=== PATIENT | female | born 1975 | race Caucasian/White ===

== ENCOUNTER → 2022-04-03 | Outpatient (CLI) | payer MEDICAID, SELFPAY ==
--- NOTE | 2022-04-03 | BRBX_PTH ---
PATIENT: MATEO PETERSON LOC: [facility] U#:[id number] AGE/SX: 46/F ROOM: RE04/03/[address]: Dr. Gibson Jameson MD : 1975 BED: DIS: 04/03/2022 SPEC #: [id number] RECD: 04/03/22 12:37 STATUS: KENNY USHA #: [id number] JANKI: 04/03/22 00:[address]: Gibson Jameson DEPT: SURGICAL PATHOLOGY RECD BY: Krunal Roman ENTERED: 04/03/22 12:37 SP TYPE: BREAST BX OTHR DR: Dr. Quinten De La Rosa MD Tissues: Right breast, NOS Procedures: Surgery Specimen Level IV HEADER OPERATION: Right breast stereotactic biopsy PRE-OP DIAGNOSIS: Multiple clustered coarse heterogeneous calcifications in the right breast, lower outer aspect, middle depth TISSUE SUBMITTED: Right breast core tissue ISCHEMIC TIME: 1 minute FIXATION TIME: 56 hours MICROSCOPIC DIAGNOSIS Right breast, stereotactic core biopsy: Focal intraductal hyperplasia without atypia. Banal clustered microcalcifications. Changes suggestive of intraductal papilloma. No evidence of malignancy. AM:loly 04/06/2022 MICROSCOPIC DESCRIPTION Slides are reviewed. GROSS DESCRIPTION Received in fixative is one container labeled with the patient's name and designated right breast. The specimen consists of multiple elongated fragments of montero-yellow fibroadipose tissue that in aggregate measure 5 x 3 x 0.6 cm. The entire specimen is submitted in four cassettes. / SJ:loly 04/03/2022 TC:5 CPT: 16551
--- NOTE | 2022-04-03 12:05 | PCM.HP.BLA ---
History and Physical Date of Admission: 04/03/22 HISTORY AND PHYSICAL - BREAST COMPLAINT ? Marisol Jackson 1975 ? ? REFERRING PHYSICIAN: Quinten De La Rosa MD ? CHIEF COMPLAINT: Mammographic microcalcification found on diagnostic imaging of breast (primary encounter diagnosis) ? HPI: The patient is a 46 year old female with a complaint of an abnormal mammogram. The patient had a mammogram with ultrasound on March 10, 2022 which demonstrated : IMPRESSION: SUSPICIOUS FINDING - BIOPSY SHOULD BE CONSIDERED The multiple clustered coarse heterogeneous calcifications in the right breast lower outer aspect middle depth are suspicious of malignancy. ?A stereotactic biopsy is recommended. The 0.6 cm oval focal asymmetry in the right breast central to the nipple middle depth is suspicious of malignancy. ?A stereotactic biopsy is recommended - no defintive sonographic correlate noted on same day ultrasound. ? ? The patient denies a history of breast masses. She does perform a self breast exam routinely. She notes no skin changes. She denies nipple discharge. She notes no axillary masses. She notes no family history of breast problems. She notes no significant breast trauma or breast difficulties in the past. ? ? The patient is being seen by me today at the request of Dr. Quinten De La Rosa MD for my opinion and advice regarding Mammographic microcalcification found on diagnostic imaging of breast (primary encounter diagnosis). ? PAST MEDICAL HISTORY PAST MEDICAL HISTORY Diagnosis Date ? Abnormal Pap smear of cervix 2006 ? colp 2007 negative ? Anxiety ? ? Depression 06/04/2017 ? H/O cold sores ? ? Hypothyroidism ? ? Migraines ? ? with visual aura ? ? PAST SURGICAL HISTORY PAST SURGICAL HISTORY Procedure Laterality Date ? COLONOSCOPY SCREENING ? 2020 ? 5 yr follow-up suboptimal bowel prep ? PAST SURGICAL HISTORY OF ? 2010 ? shoulder surgery on left ? PAST SURGICAL HISTORY OF ? 1993 ? lap and d and c;endometriosis ? SHOULDER ARTHROSCOPY/SURGERY ? ? ? Right shoulder ? TONSILLECTOMY HX ? ? ? VAG HYST 250 GM/< W/RMVL TUBE&/OVARY ? 06/10/2017 ? ovaries remain ? VAGINAL HYSTERECTOMY ? CURRENT MEDICATIONS Current Outpatient Medications Medication Sig Dispense Refill ? fexofenadine (KYLE) 180 mg tablet Take 180 mg by mouth once daily. ? ? ? fluticasone (FLONASE) 50 mcg/actuation nasal spray Use 2 Sprays in each nostril once daily. Rinse mouth after use. 16 g 1 ? escitalopram oxalate (LEXAPRO) 20 mg tablet Take 1 tablet by mouth once daily. 90 tablet 3 ? levothyroxine (SYNTHROID) 137 mcg tablet Take 1 tablet by mouth once daily. 90 tablet 1 ? valACYclovir (VALTREX) 500 mg tablet Take 1 tablet by mouth once daily. 90 tablet 0 ? OTC PRODUCT [employer] ? ? ? rOPINIRole (REQUIP) 0.25 mg tablet Take 1 tablet by mouth once daily. 90 tablet 2 ? buPROPion XL (WELLBUTRIN XL) 300 mg 24 hr tablet Take 1 tablet by mouth once daily. 90 tablet 2 ? cyclobenzaprine (FLEXERIL) 10 mg tablet Take 1 tablet by mouth three times daily as needed. 30 tablet 0 ? cycloSPORINE (RESTASIS) 0.05 % ophthalmic emulsion Use 1 Drop in both eyes twice daily. (Patient taking differently: Use 1 Drop in both eyes as needed.) 1 Vial 11 ? estradiol (CLIMARA) 0.05 mg/24 hr apply 1 (ONE) patch topically once a week DIRECTED Remove old patch (Patient not taking: Reported on 03/10/2022) 4 Patch 1 ? Current Facility-Administered Medications Medication Dose Route Frequency Provider Last Rate Last Admin ? perflutren lipid microspheres 1.3 mL in NaCl (PF) 0.9% 10 mL injection (DEFINITY) INTRAVENOUS DIRECTED PRN Yogesh Pro PA-C ? sodium chloride 0.9 % (flush) 10 mL (BD POSIFLUSH) 10 mL INTRAVENOUS DIRECTED PRN Yogesh Pro PA-C ? ? ALLERGIES: Contrast Dye [Iodine], Penicillins, Sulfa (Sulfonamide Antibiotics), and Tramadol ? PERSONAL HISTORY: SOCIAL HISTORY Social History ? Tobacco Use ? Smoking status: Former ? ? Packs/day: 1.00 ? ? Years: 9.00 ? ? Pack years: 9.00 ? ? Types: Cigarettes ? ? Quit date: 05/17/2003 ? ? Years since quittin.8 ? Smokeless tobacco: Never Vaping Use ? Vaping Use: Never used Substance Use Topics ? Alcohol use: No ? Drug use: No ? FAMILY HISTORY: FAMILY HISTORY FAMILY HISTORY Problem Relation Age of Onset ? Diabetes Mother ? ? Ischemic Heart Disease Mother ? ? at 58, started a year before ? other (lymphoma) Mother ? ? None Father ? ? unsure of medical history ? No Known Problems Sister ? ? No Known Problems Brother ? ? Breast Cancer Maternal Grandmother ? ? No Known Problems Daughter ? ? No Known Problems Son ? ? Cancer Paternal Aunt ? ? Bladder ? Breast Cancer Paternal Aunt ? ? ? REVIEW OF SYMPTOMS: The review of systems data was entered by the nurse and reviewed by me ? Nursing Notes: Cele Estevez RN 03/10/2022 2:01 PM Signed REVIEW OF SYSTEMS: General: The patient NOTES fatigue, denies weight loss, denies weight gain, denies feeling hot, and denies feelings of cold. Eyes: The patient denies glaucoma, denies eye injury/surgery, wears glasses or contacts. Ear/Nose/Throat: The patient NOTES allergies, denies hayfever, denies ear infections, and denies bloody noses. Cardiovascular: The patient denies chest pain, denies heart disease, denies high blood pressure,denies cardiac stent, denies prior heart attack, denies irregular heart beat, denies high cholesterol, denies poor circulation, denies heart failure, other cardiac issues, denies claudication, denies cold feet, denies peripheral arterial stent. Respiratory: The patient denies tuberculosis, denies pneumonia, denies frequent cough, denies pulmonary embolism, denies shortness of breath, and denies coughing up blood. Gastrointestinal: The patient denies difficulty swallowing, denies acid reflux, denies ulcers, denies vomiting, denies jaundice/hepatitis, denies gallbladder problems, denies black or tarry stools, denies hemorrhoids, denies bleeding from rectum, denies diverticulitis, denies constipation, denies diarrhea, denies loss of stool control, and denies hernias. Kidney/Bladder: The patient denies kidney stones, denies urine infections, and denies bloody urine. Skin: The patient denies a history of skin cancer, denies bleeding/changing moles, and denies a history of skin rash. Neurologic: The patient denies a history of epilepsy/convulsions, NOTES headaches, denies head/spinal injuries, and denies stroke/TIA. Psychiatric: The patient denies psychiatric medications, NOTES depression, and denies voices, denies substance abuse. Endocrine: The patient NOTES thyroid disorders, denies diabetes, and NOTES hormonal problems. Hematologic: The patient denies a history of bruising, denies bleeding, and NOTES anemia, denies blood clots. Infections: The patient denies a history of measles and mumps, denies rheumatic fever, and denies sexually transmitted diseases. Musculoskeletal: The patient denies back pain/injury, denies back problems, denies sciatica, denies knee/foot trouble, denies arthritis, or denies gout. ? ? When was patient's last Mammogram screening? 03/10/2022 ? Last Colonoscopy: 2019 ? Cele Estevez RN PHYSICAL EXAMINATION: ? General: The patient is 46 year old female, well nourished, well hydrated in no acute distress. The patient is oriented to time, place, and person. ? VITALS: Blood pressure 122/80, pulse 86, temperature 36.4 ?C (97.5 ?F), height 160 cm (5' 3), weight 76.6 kg (168 lb 12.8 oz), last menstrual period 05/28/2017, SpO2 94 %. Body mass index is 29.9 kg/m?. ? HEENT: Normal cephalic, ataumatic, pupils are equally round, sclera are anicteric, mucous membranes are moist, oropharynx is clear. Neck has no masses, asymmetry or lymphadenopathy. Thyroid is unremarkable. ? Respiratory: Clear to auscultation and percussion. Normal respiratory excursion and pattern. ? Cardiac: Examination is regular rate and rhythm. ? Abdominal exam: Soft, nontender, with no palpable masses. No hepatosplenomegaly. No palpable hernias. ? Rectal exam: exam deferred Extremities: no clubbing, cyanosis or edema. No adenopathy. ? Breast: Visual inspection reveals no retractions, nipple inversion, or skin changes. Palpation of the right breast reveals no dominant or suspicious masses. Palpation of the left breast reveals no dominant or suspicious masses. Axillary exam demonstrates no suspicious masses in either the left or right axilla. There is no nipple discharge expressed from either the left or right breast. ? LABORATORY VALUES: As Noted ? RADIOLOGIC STUDIES: As Noted ? Assessment IMPRESSION: Mammographic microcalcification found on diagnostic imaging of breast (primary encounter diagnosis) ? PLAN: I plan to perform a stereotactic biopsy of the right breast. The planned surgical procedure was discussed extensively with the patient. The risks, benefits, anticipated outcomes and possible complications were mentioned. My staff has also explained the procedure in understandable terms and the patient was given the option to take printed material concerning the planned procedure. The patient had the opportunity to ask questions concerning the planned procedure. The patient freely consents to the planned procedure. ? ? Once we have completed the stereotactic breast biopsy then we are going to have to identify this 6 mm oval focal asymmetry of the right breast central to the nipple admitted depth. ? ? Diagnoses: (R92.0) Mammographic microcalcification found on diagnostic imaging of breast (primary encounter diagnosis) ? My findings have been communicated to Dr. Quinten De La Rosa MD via shared medical record. This note will be forwarded to Dr. Quinten De La Rosa MD. ? Return to Clinic: The patient is instructed to follow-up with me 1 week post operatively. ? Gibson Jameson III, MD I have examined the patient and the H&P has been reviewed. There are no clinical changes since date of exam.
--- NOTE | 2022-04-03 12:06 | OP.PCM_ITS ---
Problems Associated Problem List Diagnoses (1) Microcalcifications of the breast: Report of Operation Date of Procedure: 04/03/22 Pre-Operative Diagnosis: Microcalcifications right breast Post-Operative Diagnosis: Same Surgery/Procedure Performed:: Right stereotactic breast biopsy Surgeon: Gibson Jameson mechanical applications engineer: None Type of Anesthesia: Local Description of Procedure: Patient was brought into the mammography unit. Placed in the prone position on the fissure table. Right breast was brought down through the opening. Lateral to medial view was obtained. Microcalcifications were identified. ?10 degree views were obtained. I targeted on the microcalcifications. Prepped the breast with Betadine. Injected 1% lidocaine plain. Placed a needle in the prefire position and took 2 more stereo view showing the area to be adequately targeted. Injected more local into the breast tissue. Fired the needle. 360 degrees circumferential biopsies were obtained. X-ray my specimen microcalcifications were identified. Backed the needle off 7 mm. Placed a small Gelfoam titanium clip. Patient also reportedly had a density we tried to identify this area in both the medial to lateral and the cc view and we were unable to see the density. Steri-Strips were applied sterile dressings were applied and standard mammograms were obtained. When I review these mammograms I did not see the density that was seen previously in January's mammography. I will see her back in the office discussed the path report and probably get a 3-year 6-month follow-up mammogram on that right side. Admit VTE Documentation VTE Present on Admission: No VTE Mechan Device Prophylaxis: None VTE Pharm Prophylaxis ordered?: No Reason prophylaxis not ordered:: Treatment Not Indicated
== END | disposition home or self-care (01) ==
LOC: BIRAD 10:48
PROVIDERS: PCP Family Medicine; Referring Provider Surgery; Visit Provider Surgery
DX: N62 Hypertrophy of breast (principal); R92.0 Mammographic microcalcification found on diagnostic imaging of breast; F41.9 Anxiety disorder, unspecified; F32.A Depression, unspecified; E03.9 Hypothyroidism, unspecified; Z79.899 Other long term (current) drug therapy; Z80.3 Family history of malignant neoplasm of breast
CPT/HCPCS: 19081; 88305; J7050; A4648